=== PATIENT | female | born 1995 | race Caucasian/White ===

== ENCOUNTER 2018-04-03 20:15 | Emergency (ER) | payer BC, SELFPAY ==
[2018-04-03] MEDS ORDERED: Lidocaine 1% PF 5 ML VIAL ONE (21:37)
[2018-04-03] MEDS ORDERED: Bupivacaine 0.5% 10 ML VIAL ONE (21:37)
[2018-04-03] MEDS ORDERED: Lidocaine 4% Cream 5 GM TUBE w/ Tegaderm ONE (21:43)
[2018-04-03] MEDS ORDERED: CEFAZOLIN 1 GM VIAL ONE (22:02)
[2018-04-03] MEDS ORDERED: Sterile Water 10 ML ONE (22:07)
[2018-04-03] MEDS ORDERED: Diazepam 5 MG TAB ONE (22:53)
[2018-04-03] MEDS ORDERED: diphenhydrAMINE 25 MG CAP ONE (22:54)
[2018-04-03] MEDS ORDERED: Bacitracin Zinc 1 Packet ONE (23:48)
[2018-04-03] MEDS ORDERED: Ondansetron ODT 4 MG TAB ONE (23:58)
== END 2018-04-04 00:24 | disposition home or self-care (01) ==
LOC: ERS 20:15
DX: S61.211A Laceration without foreign body of left index finger without damage to nail, initial encounter (principal); S61.213A Laceration without foreign body of left middle finger without damage to nail, initial encounter; F41.9 Anxiety disorder, unspecified; F32.9 Major depressive disorder, single episode, unspecified; R11.0 Nausea; Z79.899 Other long term (current) drug therapy; W26.0XXA Contact with knife, initial encounter; Y92.009 Unspecified place in unspecified non-institutional (private) residence as the place of occurrence of the external cause
CPT/HCPCS: 12002; 96372; A4216; J0690; J2001; J3490; Q0162; Q0163

== ENCOUNTER 2018-08-15 08:42 | Emergency (ER) | payer SELFPAY ==
[2018-08-15] MEDS ORDERED: Ondansetron ODT 4 MG TAB ONE (10:25)
== END 2018-08-15 11:16 | disposition short-term general hospital (02) ==
LOC: ERS 08:42
DX: T74.21XA Adult sexual abuse, confirmed, initial encounter (principal); R11.0 Nausea; Y07.9 Unspecified perpetrator of maltreatment and neglect
CPT/HCPCS: 99285; Q0162